=== PATIENT | male | born 1955 | race Caucasian/White ===

== ENCOUNTER → 2017-11-02 | Outpatient (CLI) | payer OTHER ==
[~2017-11-02] MED LIST: ASPIRIN 81M81 MG/TA2 PO; COREG 25MG25 MG/TAB PO; COREG CR10 MG PO; COZAAR 25MG25 MG/TAB PO; HYZAAR 50-12.1 UDTAB PO; LIPITOR 10MG10 MG PO; NIACOR500 MG PO
== END ==
LOC: COL.VAS 13:44
DX: M79.604 Pain in right leg (principal); R60.9 Edema, unspecified

== ENCOUNTER → 2019-08-23 | Outpatient (CLI) | payer OTHER ==
[~2019-08-23] MED LIST changes: +BUSPAR DIVIDOSE15 MG PO; +DIOVAN HCT 25 M1 TAB PO; +SYNTHROID0.1 MG/TAB PO; +ZOLOFT 100MG100 MG; +ZOLOFT 100MG100 MG PO
== END ==
LOC: COL.RAD 12:28
DX: R10.31 Right lower quadrant pain (principal); Z90.79 Acquired absence of other genital organ(s)
CPT/HCPCS: Q9967

== ENCOUNTER 2020-07-31 06:58 | Outpatient (CLI) | payer OTHER ==
[~2020-07-31] VITALS: Ht 167.6 cm; Wt 78.5 kg
[2020-07-31] VITALS (14 sets, daily range): BP systolic 87–141; BP diastolic 49–80; PULSE 56–69
--- NOTE | 2020-07-31 08:20 | NUR ---
Report from Daphnie BIGGS. Pt transferred self from cart to bed. Denies pain and SOB at this time. VSS. Bandaid to right lower side CD&I.
--- NOTE | 2020-07-31 11:10 | NUR ---
Ok to discharge per Dr. Sosa. INT discontinued intact.
--- NOTE | 2020-07-31 11:38 | NUR ---
Discharge instructions given. Transferred to private car by tory
== END 2020-07-31 11:39 | disposition home or self-care (01) ==
LOC: COL.RAD 06:58
DX: C09.9 Malignant neoplasm of tonsil, unspecified (principal); R91.8 Other nonspecific abnormal finding of lung field